=== PATIENT | male | born 1950 | race Caucasian/White ===

== ENCOUNTER → 2018-05-20 | Outpatient (CLI) | payer OTHER ==
[2018-05-20 15:56] LABS: HCT 44.2 % (39.0-53.0); HGB 14.8 gm/dL (13.0-17.5); MCH 29.9 pg (25.0-35.0); MCHC 33.4 g/dL (31.0-37.0); MCV 89.4 fL (80.0-100.0); Platelet Count 286 k/uL (150-450); RBC 4.95 m/uL (4.30-5.90); RDW 12.2 % (11.5-15.5); WBC 6.7 k/uL (3.8-10.6)
[2018-05-20 23:45] LABS: Anion Gap 7.6 mmol/L (4.00-12.00); Calcium 9.2 mg/dL (8.7-10.3); Carbon Dioxide 31.4 mmol/L (21.6-31.8); LDL Cholesterol,Calculated 108.4 mg/dL (0.0-131.0); Potassium 3.8 mmol/L (3.5-5.5); VLDL Calculation 50.6 mg/dL (5.00-40.00)
[2018-05-21 00:57] LABS: Hemoglobin A1C 11.6 % (4.0-6.0)
== END | disposition home or self-care (01) ==
LOC: LABWHC1 15:29
PROVIDERS: ATTEND Internal Medicine Interventional Cardiology
DX: E78.5 Hyperlipidemia, unspecified (principal); E11.9 Type 2 diabetes mellitus without complications
CPT/HCPCS: 36415; 80048; 80061; 82550; 83036; 84450; 84460; 85027

== ENCOUNTER 2018-08-13 10:53 | Day surgery (SDC) | payer OTHER ==
[2018-08-10 11:19] VITALS: BMI 32.3
[~2018-08-13 10:53] MED LIST: SODIUM CHLORIDE 0.9% 1,000 ML IV SCH
[2018-08-13 11:31] VITALS: TEMP 97.9
[2018-08-13 12:40] LABS: Glucose,Whole Blood 205 mg/dL (75-99)
[2018-08-13] MEDS ORDERED: SODIUM CHLORIDE 0.9% 500 ML 500 ML IV ONE (12:41)
[2018-08-13] MEDS ORDERED: PROPOFOL 10 MG/ML 20 ML VIAL IV ONE (12:41)
[2018-08-13 13:07] VITALS: PULSE 76; RESP 18
--- NOTE | 2018-08-13 13:14 | P.PCN ---
Preoperative Diagnosis: Diagnosis Cardio myopathy Single chamber ICD Congestive heart failure [facility] [facility] medical ICD, fortify assura Single chamber ICD Racing threshold 0.8 V at 0.5 ms Sensing 11.7 mV Pacing impedance 550 ohms High-voltage impedance 80 ohms DC fibber shock was used to induce ventricle defibrillation This was adequately and appropriately detected at least sensitivity without any dropouts and successfully internally defibrillated with a 10 J shock Charge time 1.6 seconds Shocking impedance 80 ohms No post shock noise The device was then reprogrammed according to the MADIT RIT programming Backup pacing VVI 40 beats a minute Sensitivity reprogrammed to nominal settings Appropriate antitachycardia pacing cardioversion and defibrillation programmed Impression Normal ICD function Defibrillation level at or below 10 J
[2018-08-13 15:13] VITALS: BP 137/72
== END 2018-08-13 14:30 | disposition home or self-care (01) ==
LOC: CATHEP 10:53
PROVIDERS: ATTEND Internal Medicine Clinical Cardiac Electrophysiology
DX: I42.8 Other cardiomyopathies (principal); Z45.02 Encounter for adjustment and management of automatic implantable cardiac defibrillator; I50.22 Chronic systolic (congestive) heart failure; I10 Essential (primary) hypertension; E78.5 Hyperlipidemia, unspecified; E11.9 Type 2 diabetes mellitus without complications; E66.9 Obesity, unspecified; Z68.32 Body mass index [BMI] 32.0-32.9, adult; G47.33 Obstructive sleep apnea (adult) (pediatric); D75.1 Secondary polycythemia; Z79.82 Long term (current) use of aspirin; Z79.899 Other long term (current) drug therapy; Z79.84 Long term (current) use of oral hypoglycemic drugs; Z90.49 Acquired absence of other specified parts of digestive tract
CPT/HCPCS: 93642; J2704

== ENCOUNTER 2021-06-18 11:08 | Emergency (ER) | payer MEDICARE, BC ==
[2021-06-18 11:29] VITALS: BP 150/88; PULSE 79; RESP 16; TEMP 97.9
[2021-06-18] MEDS ORDERED: SODIUM CHLORIDE 0.9% 500 ML 500 ML IV STA (11:53)
[2021-06-18] MEDS ORDERED: MECLIZINE 12.5 MG TAB PO STA (11:53)
[2021-06-18] MEDS ORDERED: ONDANSETRON 4 MG/2 ML VIAL IVP STA (11:53)
[2021-06-18 12:24] LABS: Basophils % (A) 1 %; Eosinophils # (A) 0.1 k/uL (0-0.7); Eosinophils % (A) 2 %; HCT 42.5 % (39.0-53.0); HGB 14.7 gm/dL (13.0-17.5); Lymphocytes # (A) 1.4 k/uL (1.0-4.8); Lymphocytes % (A) 23 %; MCH 30.2 pg (25.0-35.0); MCHC 34.5 g/dL (31.0-37.0); MCV 87.4 fL (80.0-100.0); Mean Platelet Volume 6.9; Monocytes # (A) 0.3 k/uL (0-1.0); Monocytes % (A) 5 %; Neutrophils % (A) 66 %; Platelet Count 309 k/uL (150-450); RBC 4.86 m/uL (4.30-5.90); RDW 12.9 % (11.5-15.5)
--- NOTE | 2021-06-18 12:37 | ED ---
General Adult HPI - General Chief complaint: Dizziness Stated complaint: Eye pain/dizziness Time Seen by Provider: 06/18/21 11:42 Source: patient, RN notes reviewed, old records reviewed Mode of arrival: ambulatory Limitations: no limitations - History of Present Illness Initial comments: Patient is a 70-year-old male with history of hypertension, sleep apnea, hyperlipidemia, presenting to the emergency Department with complaints of vertigo-type symptoms that started 4 days ago. Patient states that late night into early Friday morning, he woke up to go to the restroom, as he was walking back to his bed, he states he had a sudden pressure behind his left eye and then felt really dizzy. Patient states he had nausea, felt like the room is spinning. He felt like he could not focus on his alarm clock. He states this acute episode lasted for quite a while or when he was able to lay down and go to sleep for the night. When he woke up the next morning he states his symptoms did seem improved however when he was laying down, turns his head to get to the left or to the right to the symptoms are provoked again. He continues to have intermittent nausea, no further vomiting. No history of vertigo in the past. He denies any head trauma, no falls or accidents. He does not take a blood thinner. He has no history of strokes or blood clots. He denies any chest pain or shortness of breath. He states over the past few days, symptoms have been improving however he continues to feel nauseous and wanted to be evaluated. He denies any dizziness or blurry vision today, no numbness and tingling to his extremities, no trouble with ambulation. He denies any ear pain. He has no further complaints at this time. Upon arrival to the ER his vitals are stable. - Related Data Home Medications Medication Instructions Recorded Confirmed Aspirin 81 mg PO DAILY 03/31/14 08/13/18 Carvedilol 6.25 mg PO BID 03/31/14 08/13/18 Furosemide 20 mg PO BID 03/31/14 08/13/18 Losartan Potassium 100 mg PO DAILY 03/31/14 08/13/18 Spironolactone 12.5 mg PO DAILY 03/31/14 08/13/18 Ezetimibe 10 dose DAILY 08/13/18 08/13/18 Pravastatin Sodium [Pravachol] 20 mg PO HS 08/13/18 08/13/18 metFORMIN HCL [Glucophage] 1,000 cap BID 08/13/18 08/13/18 Previous Rx's Medication Instructions Recorded Meclizine [Antivert] 25 mg PO BID #15 tab 06/18/21 Ondansetron Odt [Zofran Odt] 4 mg PO Q8HR PRN #12 tab 06/18/21 Allergies Allergy/AdvReac Type Severity Reaction Status Date / Time No Known Allergies Allergy Verified 06/18/21 11:26 Review of Systems ROS Statement: Those systems with pertinent positive or pertinent negative responses have been documented in the HPI. ROS Other: All systems not noted in ROS Statement are negative. Past Medical History Past Medical History: Hyperlipidemia, Hypertension, Sleep Apnea/CPAP/BIPAP Additional Past Medical History / Comment(s): SEE DR MYERS H&P. No CPAP use. History of Any Multi-Drug Resistant Organisms: None Reported Past Surgical History: Appendectomy, Cholecystectomy, Pacemaker Past Anesthesia/Blood Transfusion Reactions: No Reported Reaction Type of Cardiac Device: Permanent Pacemaker Device Placement Date:: 2014 Past Psychological History: No Psychological Hx Reported Smoking Status: Never smoker Past Alcohol Use History: Occasional Past Drug Use History: None Reported - Past Family History Father Family Medical History: Cancer Additional Family Medical History / Comment(s): COLON CANCER, PROSTATE CANCER. General Exam - General Exam Comments Initial Comments: GENERAL: Patient is well-developed and well-nourished. Patient is nontoxic and in no acute distress. HEAD: Atraumatic, normocephalic. EYES: Pupils equal round and reactive to light, extraocular movements intact, sclera anicteric, conjunctiva are normal. Eyelids were unremarkable. ENT: TMs normal, nares patent, oropharynx clear without exudates. Moist mucous membranes. Patient wears bilateral hearing aids. NECK: Normal range of motion, supple without lymphadenopathy or JVD. LUNGS: Unlabored respirations. Breath sounds clear to auscultation bilaterally and equal. No wheezes rales or rhonchi. HEART: Regular rate and rhythm without murmurs, rubs or gallops. ABDOMEN: Soft, nontender, normoactive bowel sounds. No guarding, no rebound. No masses appreciated. MUSCULOSKELETAL: Normal extremities with adequate strength and normal range of motion, no pitting or edema. No clubbing or cyanosis. NEUROLOGICAL: Patient is alert and oriented x 3. Motor and sensory are also intact. Cranial nerves II through XII grossly intact. Symmetrical smile. Normal speech, normal gait. PSYCH: Normal mood, normal affect. SKIN: Warm, Dry, normal turgor, no rashes or lesions noted. Limitations: no limitations Neurological exam: Present: alert, oriented X3, CN II-XII intact, normal gait Expanded Speech: Present: fluid speech Cranial nerves: EOM's Intact: Normal, Tongue Deviation: Normal, Nystagmus: Normal, Facial Sensation: Normal Cerebellar function: Finger to Nose: Normal, Heel to Holliday: Normal Upper motor neuron: Fan Neglect: Normal, Pronator Drift: Normal Sensory exam: Upper Extremity Light Touch: Normal, Lower Extremity Light Touch: Normal Motor strength exam: RUE: 5, LUE: 5, RLE: 5, LLE: 5 Course Vital Signs 06/18/21 11:26 Temperature 97.9 F Pulse Rate 79 Respiratory 16 Rate Blood Pressure 150/88 O2 Sat by Pulse 97 Oximetry EKG Findings - EKG Comments: EKG Findings:: Sinus rhythm, nonspecific T-wave abnormality, no signs of acute ST segment elevation. No previous to compare to. Ventricular rate 73, AR interval 165, QT 377. Medical Decision Making - Medical Decision Making Patient is a 70-year-old male presenting with vertigo-type symptoms for the past 4 days. Symptoms have improved over the last 4 days continues to have nausea, intermittent dizziness with head turning, mostly when he is laying down. No acute neuro deficits on exam. His vital signs are stable. Patient's labs are stable, no acute process, sugar was slightly elevated in 200s. Patient was given Zofran and meclizine and has been asymptomatic here in the ER. Patient was reexamined, able to and without difficulty, continues to have a negative neuro exam. I do think his symptoms are consistent with vertigo. I recommended continuing with the meclizine and following up with ENT. Patient is agreeable to this. Return parameters were discussed with him and he verbalized understanding. Case discussed with Dr. Gutierrez. - Lab Data Result diagrams: 06/18/21 12:09 06/18/21 12:09 Lab Results 06/18/21 06/18/21 Range/Units 12:09 12:09 WBC 6.0 (3.8-10.6) k/uL RBC 4.86 (4.30-5.90) m/uL Hgb 14.7 (13.0-17.5) gm/dL Hct 42.5 (39.0-53.0) % MCV 87.4 (80.0-100.0) fL MCH 30.2 (25.0-35.0) pg MCHC 34.5 (31.0-37.0) g/dL RDW 12.9 (11.5-15.5) % Plt Count 309 (150-450) k/uL MPV 6.9 Neutrophils % 66 % Lymphocytes % 23 % Monocytes % 5 % Eosinophils % 2 % Basophils % 1 % Neutrophils # 4.0 (1.3-7.7) k/uL Lymphocytes # 1.4 (1.0-4.8) k/uL Monocytes # 0.3 (0-1.0) k/uL Eosinophils # 0.1 (0-0.7) k/uL Basophils # 0.0 (0-0.2) k/uL Sodium 137 (137-145) mmol/L Potassium 4.3 (3.5-5.1) mmol/L Chloride 98 (98-107) mmol/L Carbon Dioxide 29 (22-30) mmol/L Anion Gap 10 mmol/L BUN 21 H (9-20) mg/dL Creatinine 1.27 H (0.66-1.25) mg/dL Est GFR (CKD-EPI)AfAm 67 (>60 ml/min/1.73 sqM) Est GFR (CKD-EPI)NonAf 58 (>60 ml/min/1.73 sqM) Glucose 217 H (74-99) mg/dL Calcium 9.5 (8.4-10.2) mg/dL Magnesium 1.7 (1.6-2.3) mg/dL Total Bilirubin 0.6 (0.2-1.3) mg/dL AST 21 (17-59) U/L ALT 19 (4-49) U/L Alkaline Phosphatase 65 (38-126) U/L Total Protein 7.2 (6.3-8.2) g/dL Albumin 4.2 (3.5-5.0) g/dL TSH 3.160 (0.465-4.680) mIU/L Disposition Clinical Impression: Vertigo, Nausea Disposition: HOME SELF-CARE Condition: Stable Instructions (If sedation given, give patient instructions): Vertigo (ED) Additional Instructions: Please return to the Emergency Department if symptoms worsen or any other concer ns. May take meclizine as needed for vertigo-type symptoms. May take Zofran for additional nausea or vomiting. Follow-up with ENT and/or your PCP. Prescriptions: Meclizine [Antivert] 25 mg PO BID #15 tab Ondansetron Odt [Zofran Odt] 4 mg PO Q8HR PRN #12 tab PRN Reason: Nausea Is patient prescribed a controlled substance at d/c from ED?: No Referrals: Andrés Nava DO [Primary Care Provider] - 1-2 days Robert Quinones MD [STAFF PHYSICIAN] - 1-2 days Time of Disposition: 13:49
--- NOTE | 2021-06-18 12:47 | CT ---
EXAMINATION TYPE: CT brain wo con DATE OF EXAM: 06/18/2021 COMPARISON: None HISTORY: Dizziness, blurred vision bilateral eyes, head pressure CT DLP: 1121.[address] of the brain was performed. The ventricles, basal cisterns and sulci overlying the cerebral convexities demonstrate mild enlargem ent. There is no evidence for intracranial hemorrhage or sulcal effacement. There is decreased attenuation about the periventricular white matter and deep white matter of both c erebral hemispheres, compatible with chronic small vessel ischemia. Differential diagnosis does inclu de demyelination. No mass effects are seen.No midline shift. Osseous calvarium is intact. If symptoms persist consider MRI. IMPRESSION: 1. Age related atrophic and chronic small vessel ischemic change without acute intracranial process s een at this time.
[2021-06-18 12:59] LABS: ALT 19 U/L (4-49); AST 21 U/L (17-59); African American GFR (CKD) 67 (>60 ml/min/1.73 sqM); Albumin 4.2 g/dL (3.5-5.0); Alkaline Phosphatase 65 U/L (38-126); Anion Gap 10 mmol/L; Blood Urea Nitrogen 21 mg/dL (9-20); Calcium 9.5 mg/dL (8.4-10.2); Carbon Dioxide 29 mmol/L (22-30); Chloride 98 mmol/L (98-107); Glucose 217 mg/dL (74-99); Magnesium 1.7 mg/dL (1.6-2.3); Non-African American GFR(CKD) 58 (>60 ml/min/1.73 sqM); Potassium 4.3 mmol/L (3.5-5.1); Sodium 137 mmol/L (137-145); Total Bilirubin 0.6 mg/dL (0.2-1.3); Total Protein 7.2 g/dL (6.3-8.2)
== END 2021-06-18 14:33 | disposition home or self-care (01) ==
LOC: EC 11:08
DX: R42 Dizziness and giddiness (principal); R11.0 Nausea; E78.5 Hyperlipidemia, unspecified; I10 Essential (primary) hypertension; Z79.82 Long term (current) use of aspirin; Z79.84 Long term (current) use of oral hypoglycemic drugs; Z90.49 Acquired absence of other specified parts of digestive tract; Z95.0 Presence of cardiac pacemaker
CPT/HCPCS: 99284; 96374; 96361 ×2; 36415; 93005; 80053; 84443; 83735; 85025; 70450; J2405

== ENCOUNTER 2021-09-28 08:45 | Day surgery (SDC) | payer MEDICARE ==
[2021-09-27 08:36] VITALS: BMI 32.3
[~2021-09-28 08:45] MED LIST changes: +LACTATED RINGERS 1,000 ML IV SCH; +LIDOCAINE 1% (10MG/ML) FOR IV START INTRADERMA PRN; -SODIUM CHLORIDE 0.9% 1,000 ML IV SCH
[2021-09-28 09:16] VITALS: RESP 16; TEMP 96.9
[2021-09-28 09:27] LABS: Glucose,Whole Blood 195 mg/dL (70-110)
[2021-09-28] MEDS ORDERED: LIDOCAINE 2% INJ 20 MG/ML (2 ML VIAL) ONE (09:53)
[2021-09-28] MEDS ORDERED: PROPOFOL 10 MG/ML 20 ML VIAL IV ONE (09:53)
--- NOTE | 2021-09-28 10:11 | P.PCN ---
Date of Procedure: 09/28/21 Procedure(s) Performed: BRIEF HISTORY: Patient is a 70-year-old pleasant white male scheduled for an elective colonoscopy as a part of evaluation of prior history of colon polyps. Last colonoscopy was 5 years ago. PROCEDURE PERFORMED: Colonoscopy with snare polypectomy. PREOPERATIVE DIAGNOSIS: History of colon polyps. IV sedation per Anesthesia. PROCEDURE: After informed consent was obtained, the patient, was brought into the endoscopy unit. IV sedation was administered by Anesthesia under continuous monitoring. Digital rectal examination was normal. Initially the Olympus CF-160 flexible video colonoscope was then inserted in the rectum, gradually advanced into the cecum without any difficulty. Careful examination was performed as the scope was gradually being withdrawn. Ileocecal valve and the appendiceal orifice were visualized and appeared normal. Prep was excellent. Mucosa of the cecum, ascending colon, appeared normal. In the hepatic flexure there was a 5-6 mm sessile polyp removed by snare polypectomy. Rest of the transverse colon, descending colon, sigmoid colon, and rectum appeared normal. Scattered sigmoid diverticulosis. Retroflexion was performed in the rectum and no lesions were seen. The patient tolerated the procedure well. IMPRESSION: 5-6 mm hepatic flexure polyp status post polypectomy Scattered sigmoid diverticulosis RECOMMENDATIONS: Findings of this examination were discussed with the patient as well as his family. He was advised to follow with the biopsy results. If the biopsy reveals adenoma he can have a repeat colonoscopy in 5 years..
[2021-09-28 10:28] VITALS: BP 116/69; PULSE 81
== END 2021-09-28 10:46 | disposition home or self-care (01) ==
LOC: ORWHC2ENDO 08:45
PROVIDERS: ATTEND Internal Medicine Gastroenterology
DX: Z12.11 Encounter for screening for malignant neoplasm of colon (principal); D12.3 Benign neoplasm of transverse colon; K57.30 Diverticulosis of large intestine without perforation or abscess without bleeding; Z86.010 Personal history of colon polyps; Z80.0 Family history of malignant neoplasm of digestive organs; I10 Essential (primary) hypertension; E78.5 Hyperlipidemia, unspecified; E11.9 Type 2 diabetes mellitus without complications; Z95.810 Presence of automatic (implantable) cardiac defibrillator; Z79.84 Long term (current) use of oral hypoglycemic drugs; Z79.82 Long term (current) use of aspirin; Z79.899 Other long term (current) drug therapy
CPT/HCPCS: 88305; 45385; J2704; J2001

== ENCOUNTER → 2021-12-18 | Outpatient (CLI) | payer MEDICARE ==
[2021-12-19 03:00] LABS: Basophils # (A) 0.06 X 10*3/uL (0.00-0.10); Basophils % (A) 0.9 %; Eosinophils # (A) 0.13 X 10*3/uL (0.04-0.35); Eosinophils % (A) 1.9 %; HCT 39.5 % (39.6-50.0); HGB 13.6 g/dL (13.0-17.0); Immature Grans, Automated 0.3 %; Lymphocytes # (A) 1.93 X 10*3/uL (0.90-5.00); Lymphocytes % (A) 28.8 %; MCH 29.4 pg (27.0-32.0); MCHC 34.4 g/dL (32.0-37.0); MCV 85.5 fL (80.0-97.0); Mean Platelet Volume 9.9 fL (9.5-12.2); Monocytes # (A) 0.52 X 10*3/uL (0.20-1.00); Monocytes % (A) 7.7 %; NRBC Per 100 WBC 0 /100 WBCS (0.0-0.0); Neutrophils # (A) 4.05 X 10*3/uL (1.80-7.70); Neutrophils % (A) 60.4 %; Platelet Count 299 X 10*3/uL (140-440); RBC 4.62 X 10*6/uL (4.40-5.60); RDW 12.1 % (11.5-14.5); WBC 6.71 X 10*3/uL (4.50-10.00)
[2021-12-19 06:50] LABS: African American GFR (CKD) 50.2 (60.0-200.0); Anion Gap 8.8 mmol/L (10.00-18.00); Blood Urea Nitrogen 23.4 mg/dL (9.0-27.0); Carbon Dioxide 28.2 mmol/L (20.0-27.5); Non-African American GFR(CKD) 43.3 (60.0-200.0)
== END | disposition home or self-care (01) ==
LOC: LABPAT 15:03
PROVIDERS: ATTEND Internal Medicine Clinical Cardiac Electrophysiology
DX: Z01.812 Encounter for preprocedural laboratory examination (principal); I42.8 Other cardiomyopathies
CPT/HCPCS: 80051; 82565; 84520; 85025

== ENCOUNTER 2022-01-01 08:18 | Day surgery (SDC) | payer MEDICARE ==
[2021-12-28 15:57] VITALS: BMI 33.3
[~2022-01-01 08:18] MED LIST changes: -LIDOCAINE 1% (10MG/ML) FOR IV START INTRADERMA PRN; +SODIUM CHLORIDE 0.9% 1,000 ML IV SCH
[2022-01-01] MEDS ORDERED: SODIUM CHLORIDE 0.9% 1,000 ML IV ONE (08:30)
[2022-01-01 08:48] VITALS: TEMP 98.2
[2022-01-01 08:51] LABS: Glucose,Whole Blood 243 mg/dL (70-110)
[2022-01-01] MEDS ORDERED: fentaNYL (PF) 50 MCG/ML 2 ML AMP ONE (10:19)
[2022-01-01] MEDS ORDERED: KETAMINE 10 MG/ML 20 ML VIAL ONE (10:19)
[2022-01-01] MEDS ORDERED: LIDOCAINE 2% INJ 20 MG/ML (2 ML VIAL) ONE (10:19)
[2022-01-01] MEDS ORDERED: PROPOFOL 10 MG/ML 20 ML VIAL IV ONE (10:19)
[2022-01-01] MEDS ORDERED: MIDAZOLAM 2 MG/2 ML VIAL ONE (10:19)
[2022-01-01] MEDS: ceFAZolin 1 GM in SODIUM CHLORIDE 0.9% IRRIG BTL 250 ML IRRIGATION PRN ×2 (10:53→11:22)
[2022-01-01] MEDS ORDERED: LIDOCAINE 1% INJ 10MG/ML (30 ML VIAL-PF) SQ ONE (11:04)
[2022-01-01] MEDS ORDERED: VANCOMYCIN 1,250 MG in SODIUM CHLORIDE 0.9% 250 ML IVPB STA (11:13)
[2022-01-01] MEDS ORDERED: ACETAMINOPHEN IV (For NPO) 1,000 MG in EMPTY BAG 1 BAG IVPB ONE (12:07)
[2022-01-01] MEDS ORDERED: ACETAMINOPHEN TAB 325 MG TAB PO PRN (12:07)
--- NOTE | 2022-01-01 12:20 | P.EPPROC ---
- EP Procedure Note Electrophysiology Procedure Note: Diagnosis Premature battery depletion, ICD on advisory Underlying cardio myopathy with congestive heart failure class II on guideline directly medical treatment Cinefluoroscopy of the leads Cinefluoroscopy of the single coil single-chamber lead No fractures or breaks noted Lead position and the RV low septum Single-chamber ICD Generator change The left pectoral area was prepped and draped as per protocol. IV antibiotics administered including IV vancomycin Incision made over the previous incision Lucina on telemetry generator Partial capsulectomy performed Generator explanted Lead interrogated New generator implanted tyrx pouch placed Wound closed in 3 layers and dressed per protocol Newly implanted device [facility] [facility] [facility] [employer] Fortify Assura VR 1357-40C ICD, serial number [id number] R waves 1112 mV, pacing impedance 600 ohms Pacing threshold 0.75 V at 0.5 ms High-voltage impedance 89 ohms Defibrillation level testing VF induced and appropriately detected without any dropouts Successfully internally defibrillated with 10 J shock in an edgar polarity Charge time 1.5 seconds High-voltage impedance 89 ohms Patient tolerated the procedure well without any acute complications Device programmed to VVI 40 beats a minute MADIT RIT programming with appropriate antitachycardia pacing cardioversion and defibrillation
[2022-01-01] MEDS ORDERED: INSULIN ASPART (NovoLOG) 100 UNIT/ML VIAL SQ SCH (12:30)
[2022-01-01 18:10] VITALS: RESP 16
[2022-01-01 18:21] VITALS: BP 164/82; PULSE 78
[2022-01-01] MEDS ORDERED: carvediloL 6.25 MG TAB PO SCH (21:00)
[2022-01-01] MEDS ORDERED: FUROSEMIDE 20 MG TAB PO SCH (21:00)
[2022-01-01] MEDS ORDERED: EZETIMIBE 10 MG TAB PO SCH (21:00)
[2022-01-01] MEDS ORDERED: ASPIRIN 81 MG PO SCH (21:00)
[2022-01-01] MEDS ORDERED: PRAVASTATIN SODIUM 20 MG TAB PO SCH (21:00)
[2022-01-02] MEDS ORDERED: SPIRONOLACTONE 25 MG TAB PO SCH (09:00)
[2022-01-02] MEDS ORDERED: LOSARTAN 50 MG TAB PO SCH (09:00)
[2022-01-02] MEDS ORDERED: LINAGLIPTIN 5 MG TABLET PO SCH (09:00)
== END 2022-01-01 16:12 | disposition home or self-care (01) ==
LOC: CATHEP 08:18
PROVIDERS: ATTEND Internal Medicine Clinical Cardiac Electrophysiology
DX: T82.191A Other mechanical complication of cardiac pulse generator (battery), initial encounter (principal); I42.8 Other cardiomyopathies; I11.0 Hypertensive heart disease with heart failure; I50.9 Heart failure, unspecified; E11.9 Type 2 diabetes mellitus without complications; Z79.899 Other long term (current) drug therapy; Z79.84 Long term (current) use of oral hypoglycemic drugs
CPT/HCPCS: 93641; 33262; C1722; J2250; J3370; J0690; J2001 ×2; J3010; J2704

== ENCOUNTER → 2023-08-12 | Outpatient (CLI) | payer MEDICARE ==
[2023-08-12 15:07] LABS: HCT 41.8 % (39.6-50.0); MCH 30.4 pg (27.0-32.0); MCHC 33.5 g/dL (32.0-37.0); MCV 90.7 FL (80.0-97.0); Mean Platelet Volume 9.4 FL (9.5-12.2); NRBC Per 100 WBC 0 X 10*3/uL (0.00-0.01); Platelet Count 277 X 10*3/uL (140-440); RBC 4.61 X 10*6/uL (4.40-5.60); RDW 12.2 % (11.5-14.5); WBC 8.08 X 10*3/uL (4.50-10.00)
[2023-08-12 15:33] LABS: Blood Urea Nitrogen 35.3 mg/dL (9.0-27.0); Carbon Dioxide 27.3 mmol/L (21.6-31.8); Chloride 102 mmol/L (96-109); Potassium 5.7 mmol/L (3.5-5.5); Sodium 142 mmol/L (135-145)
== END | disposition home or self-care (01) ==
LOC: LABPAT 08:33
PROVIDERS: ATTEND Internal Medicine Interventional Cardiology
DX: Z01.812 Encounter for preprocedural laboratory examination (principal); I20.9 Angina pectoris, unspecified; I42.8 Other cardiomyopathies; R07.9 Chest pain, unspecified
CPT/HCPCS: 36415; 80051; 82565; 84520; 85027

== ENCOUNTER → 2023-08-14 | Day surgery (SDC) | payer MEDICARE ==
[2023-08-13 09:18] VITALS: BMI 33.3
[~2023-08-14] MED LIST changes: +ALPRAZolam 0.25 MG TAB PO PRN; +ALPRAZolam 0.5 MG TAB PO PRN; +ASPIRIN 81 MG PO SCH; +ATORVASTATIN 80 MG TAB PO STA; +EZETIMIBE 10 MG TAB PO SCH; +FUROSEMIDE 20 MG TAB PO SCH; +HEPARIN SODIUM,PORCINE (1 ML) 2,500 UNIT in SODIUM CHLORIDE 0.9% 250 ML IRRIGATION PRN; +HEPARIN SODIUM,PORCINE 10,000 UNIT in SODIUM CHLORIDE 0.9% 1,000 ML IRRIGATION PRN; +INSULIN NPH 100 UNIT/ML 10 ML VIAL SQ SCH; +ISOSORBIDE MONONITRATE ER 30 MG TAB.ER.24H PO SCH; -LACTATED RINGERS 1,000 ML IV SCH; +LINAGLIPTIN 5 MG TABLET PO SCH; +LOSARTAN 50 MG TAB PO SCH; +NITROGLYCERIN SL TABS 0.4 MG TAB SUBLINGUAL PRN; -SODIUM CHLORIDE 0.9% 1,000 ML IV SCH; +carvediloL 6.25 MG TAB PO SCH
[2023-08-14] MEDS: SODIUM CHLORIDE 0.9% 1,000 ML in EMPTY BAG 1 BAG IV SCH (06:17)
[2023-08-14 06:30] VITALS: RESP 16; TEMP 97.9
[2023-08-14 06:30] LABS: Glucose,Whole Blood 144 mg/dL (70-110)
[2023-08-14 06:42] LABS: African American GFR (CKD) 48 (>60 ml/min/1.73 sqM); Anion Gap 6 mmol/L; Blood Urea Nitrogen 31 mg/dL (9-20); Calcium 8.8 mg/dL (8.4-10.2); Carbon Dioxide 26 mmol/L (22-30); Chloride 103 mmol/L (98-107); Glucose 141 mg/dL (74-99); Non-African American GFR(CKD) 42 (>60 ml/min/1.73 sqM); Potassium 4.2 mmol/L (3.5-5.1); Sodium 135 mmol/L (137-145)
[2023-08-14] MEDS: MIDAZOLAM 2 MG/2 ML VIAL IVP ONE (07:38)
[2023-08-14] MEDS: LIDOCAINE 1% INJ 10MG/ML (20 ML MDV) SQ ONE (07:39)
[2023-08-14] MEDS: VERAPAMIL SYRINGE (5 MG/10 ML) INTRAARTER ONE (07:42)
[2023-08-14] MEDS: IOPAMIDOL-370 100ML BTL INJ ONE (08:02)
--- NOTE | 2023-08-14 08:21 | P.CARDCATH ---
Date of Procedure: 08/14/23 Description of Procedure: History: This is a 72-year-old gentleman with history of nonischemic cardiomyopathy with a single-chamber ICD since 2015. Since then he has developed type 2 diabetes. He has hypertension hyperlipidemia and obesity. We had not seen him for nearly a year and he came to the office on 05 June with symptoms strongly suggestive of angina even with day-to-day activities. He was being advised not to do strenuous activities Imdur was added beta-deejay was adjusted and I advised coronary angiography and brought in for the procedure after due discussion regarding risks benefits and options. His creatinine was elevated and his GFR was 40 he was well-hydrated orally and also intravenously prior to the procedure. Risks benefits options rationale were explained. His ejection fraction is in the 35% range with a global decrease in contractility. Patient was referred for cardiac catheterization to evaluate for CAD. Procedure: Left heart catheterization and coronary angiography Performed by: Dr. MARKUS Negron Moderate conscious sedation time: 22 minutes. Patient was administered Versed oxygen saturation hemodynamics and EKG were monitored closely Procedure Details: The risks, benefits, complications, treatment options, and expected outcomes were discussed with the patient. The patient and/or family concurred with the proposed plan, giving informed consent. Patient was brought to the geophysical laboratory director after IV hydration was begun and oral premedication was given. Patient was further sedated with midazolam. Patient was prepped and draped in the usual manner. Under strict aseptic precautions and local anesthesia a 6 Georgian introducer was placed in the right radial artery. Using a JL 3/5 and a JR 4/0 catheters I performed coronary angiography and the same JR catheter was used to check LV pressures and LV gram was not performed. After the procedure was completed the sheaths and catheters were all removed. Hemostasis was achieved with TR band. Saturation in the fingers of the right hand was about 97%. Moderate conscious sedation time was 22 minutes. Patient's oxygen saturation hemodynamics and EKG were monitored closely. . Findings: Hemodynamics: The left ventricle end-diastolic pressure was 5 to 7 mmHg without any gradient across aortic valve Left Main: Short patent vessel no significant disease bifurcates into LAD and circumflex. LAD: Fair caliber vessel extends along the anterior wall. There is minor diffuse disease throughout with a mid lesion of about 35 to 40%. Entire vessel has mild diffuse disease runs all the way to the apex giving off septal and smaller diagonal branches. There is a fairly decent sized diagonal branch that comes off from the LAD supplies a fair amount of myocardium. LAD however has mild to moderate diffuse disease throughout without focal critical stenosis CIRC: Nondominant vessel gives off a very high obtuse marginal that has minor irregularities and runs in the ramus distribution. Circumflex then runs in the AV groove and gives off a posterior lateral branch. This branch of circumflex provides a network of collaterals to the distal RCA. Distal branches of RCA are opacified by the injection of the left system mostly collaterals coming from circumflex. The high obtuse marginal is large in caliber and distribution gives off a secondary branch that supplies a sizable amount of myocardium RCA: This was a dominant vessel in 2015 now it is totally occluded in the proximal/midportion without any antegrade flow. There is collaterals network coming from the left system mostly the circumflex and its branches. LV: Not performed Closure Device: TR band Complications: None Estimated Blood Loss: Minimal Impression: This patient has normal filling pressures and no gradient. He has a right dominant system with a total occlusion of the dominant RCA that was large in caliber on the angiogram from 2015. There are collaterals mainly from circumflex that opacify the distal branches of RCA but the main trunk is not easily evident. LAD has diffuse noncritical disease, left main and circumflex are free of significant disease circumflex is nondominant but has a large area of distribution. Pre Procedure Diagnosis: Unstable angina with CAD Final Post Procedure Diagnosis: Unstable angina with progression of CAD Recommendation: Findings were reviewed with the patient and his family specifically his daughter. I am recommending that he should discontinue Aldactone because of hyperkalemia. I will decrease metformin from 1000 mg twice daily to 500 mg twice daily. Switch him from pravastatin to Lipitor 80 mg daily. I will also start him on Jardiance 10 mg daily. No metformin for the next 48 hours. He will be hydrated prior to discharge and will see me in the office on Friday at about 8:15 AM. 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 I will send him to [facility] for intervention given his significant symptoms. Will discuss further during the office visit same medications for now with changes as noted above. Less than 70 cc of contrast was used Complications: None; patient tolerated the procedure well. Disposition: [facility]- hemodynamically stable. Condition: Stable Discharge Disposition: Discharge patient home later on today.
[2023-08-14] MEDS: DAPAGLIFLOZIN PROPANEDIOL 10 MG TABLET PO STA (09:03)
[2023-08-14] MEDS: ASPIRIN 325 MG TAB PO STA (09:10)
[2023-08-14 12:36] VITALS: BP 173/72; PULSE 66
[2023-08-14] MEDS: SODIUM CHLORIDE 0.9% 500 ML 500 ML IV ONE (13:20)
== END ==
LOC: CATHCVL 05:32
PROVIDERS: ATTEND Internal Medicine Interventional Cardiology
DX: I42.8 Other cardiomyopathies (principal); I10 Essential (primary) hypertension; E78.5 Hyperlipidemia, unspecified; E66.9 Obesity, unspecified; E11.9 Type 2 diabetes mellitus without complications; I25.110 Atherosclerotic heart disease of native coronary artery with unstable angina pectoris
CPT/HCPCS: 93458; 80048; 99152; J2250; J2001; J1644; Q9967

== ENCOUNTER → 2023-08-26 | Outpatient (CLI) | payer MEDICARE ==
[2023-08-26 14:21] LABS: HCT 40.9 % (39.6-50.0); HGB 13.5 g/dL (13.0-17.0); MCH 29.9 pg (27.0-32.0); MCV 90.7 FL (80.0-97.0); Mean Platelet Volume 9.3 FL (9.5-12.2); NRBC Per 100 WBC 0 X 10*3/uL (0.00-0.01); Platelet Count 281 X 10*3/uL (140-440); RBC 4.51 X 10*6/uL (4.40-5.60); RDW 12.6 % (11.5-14.5); WBC 7.04 X 10*3/uL (4.50-10.00)
[2023-08-26 14:38] LABS: BUN/Creat Ratio 10.94 Ratio (12.00-20.00); Blood Urea Nitrogen 19.7 mg/dL (9.0-27.0); Calcium 9.1 mg/dL (8.7-10.3); Chloride 102 mmol/L (96-109); Glucose 220 mg/dL (70-110); Potassium 4.3 mmol/L (3.5-5.5); Sodium 138 mmol/L (135-145)
[2023-08-26 15:01] LABS: INR <0.93 sec (0.93-1.11); Prothrombin Time 9.8 sec (9.9-11.9)
== END | disposition home or self-care (01) ==
LOC: LABWHC1 08:55
PROVIDERS: ATTEND Internal Medicine
DX: I25.118 Atherosclerotic heart disease of native coronary artery with other forms of angina pectoris (principal)
CPT/HCPCS: 36415; 80048; 85027; 85610

== ENCOUNTER 2024-04-05 09:33 | Emergency (ER) | payer MEDICARE ==
--- NOTE | 2024-04-05 10:01 | ED ---
General Adult HPI - General Chief complaint: GI Bleed Stated complaint: diarrhea Time Seen by Provider: 04/05/24 09:45 Source: patient Mode of arrival: ambulatory Limitations: no limitations - History of Present Illness Initial comments: Dictation was produced using [employer] dictation software. please excuse any grammatical, word or spelling errors. Chief Complaint: 73-year-old male presents to the emergency department for GI bleed History of Present Illness: Patient 73-year-old male he does not take any anticoagulation medications states that he was recently prescribed Keflex for a facial infection. States that for the last 2 days he has been having bloody loose stools. Not sure if it is the food coloring from the antibiotics. States that his symptoms started after he started taking antibiotics. Denies any recent camping. No travel outside the country. No recent handling of livestock. Patient takes no anticoagulation medications. Denies any abdominal or rectal pain. The ROS documented in this emergency department record has been reviewed and confirmed by me. Those systems with pertinent positive or negative responses have been documented in the HPI. All other systems are other negative and/or noncontributory. - Related Data Home Medications Medication Instructions Recorded Confirmed Aspirin 81 mg PO DAILY 03/31/14 08/14/23 Furosemide 20 mg PO BID 03/31/14 08/14/23 Losartan Potassium 100 mg PO DAILY 03/31/14 08/14/23 carvediloL [Carvedilol] 6.25 mg PO BID 03/31/14 08/14/23 Ezetimibe 10 mg PO DAILY 08/13/18 08/14/23 sitaGLIPtin [Januvia] 100 mg PO DAILY 09/27/21 08/14/23 Insulin NPH Human Isophane 10 unit SQ HS 08/13/23 08/14/23 [humuLIN N Kwikpen] Isosorbide Mononitrate [Isosorbide 30 mg PO DAILY 08/13/23 08/14/23 Mononitrate ER] Atorvastatin [Lipitor] 80 mg PO HS 08/14/23 08/14/23 Empagliflozin [Jardiance] 10 mg PO DAILY 08/14/23 08/14/23 metFORMIN HCL [Glucophage] 500 mg PO BID 08/14/23 08/14/23 Allergies Allergy/AdvReac Type Severity Reaction Status Date / Time cephalexin [From Keflex] AdvReac Diarrhea Verified 04/05/24 09:43 Review of Systems ROS Statement: Those systems with pertinent positive or pertinent negative responses have been documented in the HPI. ROS Other: All systems not noted in ROS Statement are negative. Past Medical History Past Medical History: Diabetes Mellitus, Hyperlipidemia, Hypertension Additional Past Medical History / Comment(s): not sure why he has pacemaker, History of Any Multi-Drug Resistant Organisms: None Reported Past Surgical History: Appendectomy, Cholecystectomy, Heart Catheterization With Stent, Pacemaker Additional Past Surgical History / Comment(s): 1 cardiac stent, Past Anesthesia/Blood Transfusion Reactions: No Reported Reaction Type of Cardiac Device: Permanent Pacemaker Device Placement Date:: 2013 Past Psychological History: No Psychological Hx Reported Smoking Status: Former smoker Past Alcohol Use History: Occasional Past Drug Use History: None Reported - Past Family History Father Family Medical History: Cancer Additional Family Medical History / Comment(s): COLON CANCER, PROSTATE CANCER. Sister(s) Family Medical History: Cancer Additional Family Medical History / Comment(s): LUNG CANCER. General Exam - General Exam Comments Initial Comments: PHYSICAL EXAM: General Impression: Alert and oriented x3, not in acute distress HEENT: Normocephalic atraumatic, extra-ocular movements intact, pupils equal and reactive to light bilaterally, mucous membranes moist. Cardiovascular: Heart regular rate and rhythm Chest: Able to complete full sentences, no retractions, no tachypnea Abdomen: abdomen soft, non-tender, non-distended, no organomegaly Musculoskeletal: Pulses present and equal in all extremities, no peripheral edema Motor: no focal deficits noted Neurological: CN II-XII grossly intact, no focal motor or sensory deficits noted Skin: Intact with no visualized rashes Psych: Normal affect and mood Stool evaluation: Melanotic Limitations: no limitations Course Vital Signs 04/05/24 09:37 Temperature 97.3 F L Pulse Rate 83 Respiratory 18 Rate Blood Pressure 123/78 O2 Sat by Pulse 96 Oximetry Medical Decision Making - Medical Decision Making Was pt. sent in by a medical professional or institution (, PA, BIO MEDICAL TECHNICIAN, urgent care, hospital, or snf...) When possible be specific @ -No Did you speak to anyone other than the patient for history (EMS, parent, family, police, friend...)? What history was obtained from this source @ -No Did you review nursing and triage notes (agree or disagree)? Why? @ -I reviewed and agree with nursing and triage notes Were old charts reviewed (outside hosp., previous admission, EMS record, old EKG, old radiological studies, urgent care reports/EKG's, snf records)? Report findings @ -No old charts were reviewed Differential Diagnosis (chest pain, altered mental status, abdominal pain women, abdominal pain men, vaginal bleeding, musculoskeletal, weakness, fever, dyspnea, syncope, headache, dizziness, GI bleed, back pain, seizure, CVA, palpatations, mental health)? @ -Differential GI Bleed: Esophageal varices, aortoenteric fistula, Lenora-Jones, gastritis, peptic ulcer disease, diverticulosis, inflammatory bowel disease, hemorrhoids, fissure, colitis, malignancy, Meckel's diverticulum, this is not meant to be an all- inclusive list. EKG interpreted by me (3pts min.). @ -See above X-rays interpreted by me (1pt min.). @ -None done CT interpreted by me (1pt min.). @ -None done U/S interpreted by me (1pt. min.). @ -None done What testing was considered but not performed or refused? (CT, X-rays, U/S, labs)? Why? @ -None What meds were considered but not given or refused? Why? @ -None Was smoking cessation discussed for >3mins.? @ -No Were there social determinants of health that impacted care today? How? (Homelessness, low income, unemployed, alcoholism, drug addiction, transportation, low edu. Level, literacy, decrease access to med. care, senior living, rehab)? @ -No Was there de-escalation of care discussed even if they declined (Discuss DNR or withdrawal of care, Hospice)? DNR status @ -No What co-morbidities impacted this encounter? (DM, HTN, Smoking, COPD, CAD, Cancer, CVA, ARF, Chemo, Hep., AIDS, mental health diagnosis, sleep apnea, morbid obesity)? @ -None Was patient admitted / discharged? Hospital course, mention meds given and route, prescriptions, significant lab abnormalities, going to OR and other pertinent info. @ -73-year-old male presents emergency department for acute GI bleed. Patient reportedly has been bleeding profusely. Denies any abdominal rectal pain. V ital signs upon arrival are within acceptable limits. Does not complain of any symptoms of anemia. Laboratory evaluation obtained. Hemoglobin 12.0 which is down from most recent hemoglobin from last year. Rest of labs within acceptable limits. Disposition options are discussed. Patient requesting transfer to GI containing hospital facility. Patient given 80 mg of IV Protonix. Did you discuss the management of the patient with other professionals (professionals i.e. DrMurphy, PA, BIO MEDICAL TECHNICIAN, lab, RT, psych nurse, social services analyst, event promotions coordinator, teacher, business banking officer, shoe caser)? Give summary @ -Case discussed with John transfer line and Dr. Briseno for ER to ER transfer. Accepting physician is Dr. Briseno Was critical care preformed (if so, how long)? @ -No Undiagnosed new problem with uncertain prognosis? @ -No Drug Therapy requiring intensive monitoring for toxicity (Heparin, Nitro, Insuli n, Cardizem)? @ -No Were any procedures done? @ -No Diagnosis/symptom? Acute, or Chronic, or Acute on Chronic? Uncomplicated (without systemic symptoms) or Complicated (systemic symptoms)? @ -GI bleed Side effects of treatment? @ -No Exacerbation, Progression, or Severe Exacerbation? @ -No Poses a threat to life or bodily function? How? (Chest pain, [place], [place], pneumonia, PE, COPD, DKA, ARF, appy, cholecystitis, CVA, Diverticulitis, Homicidal, Suicidal, threat to staff... and all critical care pts) @ -yes - Lab Data Result diagrams: 04/05/24 10:29 04/05/24 10:29 Lab Results 04/05/24 04/05/24 04/05/24 Range/Units 10:20 10:20 10:29 WBC 7.3 (3.8-10.6) k/uL RBC 4.11 L (4.30-5.90) m/uL Hgb 12.0 L (13.0-17.5) gm/dL Hct 36.0 L (39.0-53.0) % MCV 87.4 (80.0-100.0) fL MCH 29.2 (25.0-35.0) pg MCHC 33.4 (31.0-37.0) g/dL RDW 13.2 (11.5-15.5) % Plt Count 316 (150-450) k/uL MPV 6.7 Neutrophils % 74 % Lymphocytes % 17 % Monocytes % 5 % Eosinophils % 2 % Basophils % 0 % Neutrophils # 5.4 (1.3-7.7) k/uL Lymphocytes # 1.2 (1.0-4.8) k/uL Monocytes # 0.4 (0-1.0) k/uL Eosinophils # 0.2 (0-0.7) k/uL Basophils # 0.0 (0-0.2) k/uL PT (10.0-12.5) sec INR (<1.2) APTT (22.0-30.0) sec Sodium (137-145) mmol/L Potassium (3.5-5.1) mmol/L Chloride (98-107) mmol/L Carbon Dioxide (22-30) mmol/L Anion Gap mmol/L BUN (9-20) mg/dL Creatinine (0.66-1.25) mg/dL Est GFR (CKD-EPI)AfAm (>60 ml/min/1.73 sqM) Est GFR (CKD-EPI)NonAf (>60 ml/min/1.73 sqM) Glucose (74-99) mg/dL Calcium (8.4-10.2) mg/dL Total Bilirubin (0.2-1.3) mg/dL AST (17-59) U/L ALT (4-49) U/L Alkaline Phosphatase (38-126) U/L Total Protein (6.3-8.2) g/dL Albumin (3.5-5.0) g/dL Stool Occult Blood Positive (Negative) Blood Type Recheck No Previous Record Bld Type Recheck Status CABO Indicated 04/05/24 04/05/24 Range/Units 10:29 10:29 WBC (3.8-10.6) k/uL RBC (4.30-5.90) m/uL Hgb (13.0-17.5) gm/dL Hct (39.0-53.0) % MCV (80.0-100.0) fL MCH (25.0-35.0) pg MCHC (31.0-37.0) g/dL RDW (11.5-15.5) % Plt Count (150-450) k/uL MPV Neutrophils % % Lymphocytes % % Monocytes % % Eosinophils % % Basophils % % Neutrophils # (1.3-7.7) k/uL Lymphocytes # (1.0-4.8) k/uL Monocytes # (0-1.0) k/uL Eosinophils # (0-0.7) k/uL Basophils # (0-0.2) k/uL PT 10.0 (10.0-12.5) sec INR 0.9 (<1.2) APTT 22.3 (22.0-30.0) sec Sodium 138 (137-145) mmol/L Potassium 4.3 (3.5-5.1) mmol/L Chloride 101 (98-107) mmol/L Carbon Dioxide 29 (22-30) mmol/L Anion Gap 8 mmol/L BUN 30 H (9-20) mg/dL Creatinine 1.93 H (0.66-1.25) mg/dL Est GFR (CKD-EPI)AfAm 39 (>60 ml/min/1.73 sqM) Est GFR (CKD-EPI)NonAf 34 (>60 ml/min/1.73 sqM) Glucose 154 H (74-99) mg/dL Calcium 9.4 (8.4-10.2) mg/dL Total Bilirubin 0.5 (0.2-1.3) mg/dL AST 20 (17-59) U/L ALT 19 (4-49) U/L Alkaline Phosphatase 66 (38-126) U/L Total Protein 6.8 (6.3-8.2) g/dL Albumin 4.3 (3.5-5.0) g/dL Stool Occult Blood (Negative) Blood Type Recheck Bld Type Recheck Status Disposition Clinical Impression: GI bleed Disposition: OTHER INSTITUTION NOT DEFINED Referrals: Andrés Nava DO [Primary Care Provider] - 1-2 days - Out of Hospital Transfer - Req. Specs Out of Hospital Transfer - Requested Specifics: Other Emergency [facility] ([facility]
[2024-04-05 10:41] LABS: Basophils % (A) 0 %; Eosinophils # (A) 0.2 k/uL (0-0.7); Eosinophils % (A) 2 %; Lymphocytes # (A) 1.2 k/uL (1.0-4.8); Lymphocytes % (A) 17 %; MCH 29.2 pg (25.0-35.0); MCHC 33.4 g/dL (31.0-37.0); MCV 87.4 fL (80.0-100.0); Mean Platelet Volume 6.7; Monocytes # (A) 0.4 k/uL (0-1.0); Monocytes % (A) 5 %; Neutrophils # (A) 5.4 k/uL (1.3-7.7); Neutrophils % (A) 74 %; Platelet Count 316 k/uL (150-450); RBC 4.11 m/uL (4.30-5.90); RDW 13.2 % (11.5-15.5); WBC 7.3 k/uL (3.8-10.6)
[2024-04-05 10:50] LABS: ALT 19 U/L (4-49); AST 20 U/L (17-59); African American GFR (CKD) 39 (>60 ml/min/1.73 sqM); Albumin 4.3 g/dL (3.5-5.0); Alkaline Phosphatase 66 U/L (38-126); Anion Gap 8 mmol/L; Blood Urea Nitrogen 30 mg/dL (9-20); Calcium 9.4 mg/dL (8.4-10.2); Carbon Dioxide 29 mmol/L (22-30); Chloride 101 mmol/L (98-107); Glucose 154 mg/dL (74-99); Non-African American GFR(CKD) 34 (>60 ml/min/1.73 sqM); Potassium 4.3 mmol/L (3.5-5.1); Sodium 138 mmol/L (137-145); Total Bilirubin 0.5 mg/dL (0.2-1.3); Total Protein 6.8 g/dL (6.3-8.2)
[2024-04-05 11:01] LABS: INR 0.9 (<1.2); Partial Thromboplastin Time 22.3 sec (22.0-30.0)
[2024-04-05] MEDS: PANTOPRAZOLE 40 MG/10 ML VIAL IVP ONE (11:21)
[2024-04-05 12:03] VITALS: BP 120/72; PULSE 82; RESP 14; TEMP 97.9
== END 2024-04-05 12:03 | disposition other institution (70) ==
LOC: EC 09:33
DX: K92.2 Gastrointestinal hemorrhage, unspecified (principal); Z88.1 Allergy status to other antibiotic agents; Z87.891 Personal history of nicotine dependence
CPT/HCPCS: 36415; 93005; 86900; 86901; 80053; 85025; 85610; 85730; 86850; 82272; 99285; 96374; J2470